=== PATIENT | female | born 1940 | race Caucasian/White ===

== ENCOUNTER 2020-04-27 15:03 | Inpatient (IN) | payer OTHER, MEDICAID, SELFPAY ==
[~2020-04-27] VITALS: Ht 157.5 cm; Wt 72.1 kg
[2020-04-27 15:16] VITALS: BP 163/63
--- NOTE | 2020-04-27 15:34 | NUR ---
80 Y/O FEMALE BIB FAMILY WITH W/C ASSISTANCE. FAMILY STATES PT REFUSED DIALYSIS TODAY AND REFUSING TO TAKE MEDICATIONS AT HOME AND BEING UNCOOPERATIVE. PT FAMILY STATES SHE IS BECOMING MORE ALOC TODAY. THEY CALLED PCP AND WERE TOLD TO BRING PT HERE FOR FURTHER EVALUATION FOR POSSIBLE ABNORMAL LABS. PT SAID SHE FEELS FINE AND DENIES PAIN/N/V. PT HAS PERIODS OF CONFUSED AND IS REORIENTED WHEN NEEDED. PT LAYING IN BED, BED IN LOWEST POSITION, BRAKES LOCKED, X1 SIDERAIL UP. PMH: DIALYSIS (MWF), HTN, HLD, DM NKA
[2020-04-27 16:07] LABS: HEMATOCRIT 36.6 % (36-48); HEMOGLOBIN 11.7 g/dL (12.0-16.0); MEAN CORPUSCULAR HEMOGLOBIN 34 pg (27-31); MEAN CORPUSCULAR HGB CONC 32 g/dL (33-37); MEAN CORPUSCULAR VOLUME 107.3 fL (80-94); PLATELET COUNT (AUTO) 48 K/uL (140-450); RED BLOOD CELL COUNT(AUTO) 3.41 MIL/uL (4.20-5.40); RED CELL DISTRIBUTION WIDTH 23.8 % (11.6-13.7); WHITE BLOOD COUNT (AUTO) 4.3 K/uL (4.8-10.8)
--- NOTE | 2020-04-27 16:18 | NUR ---
DR LAINEZ AT BEDSIDE FOR EVALUATION
--- NOTE | 2020-04-27 16:18 | NUR ---
RAD AT BEDSIDE
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
[2020-04-27 16:45] LABS: ANION GAP 17.9 (8-16); ASPARTATE AMINOTRANSFERASE 22 U/L (15-37); CARBON DIOXIDE 29.2 mmol/L (21-32); CHLORIDE 99 mmol/L (98-107); GLUCOSE 125 mg/dL (74-106); LIPASE 113 U/L (73-393); POTASSIUM 4.1 mmol/L (3.5-5.1); SODIUM SERUM 142 mmol/L (136-145); TOTAL BILIRUBIN 1.4 mg/dL (0.0-1.0); UREA NITROGEN, BLOOD 29 mg/dL (7-18)
[2020-04-27 16:55] LABS: ACETAMINOPHEN < 0.5 ug/ml (10-30); CREATININE 5.4 mg/dL (0.6-1.3); SALICYLATE < 2.8 mg/dL (2.8-20.0)
--- NOTE | 2020-04-27 17:05 | NUR ---
PT TAKEN TO CT VIA RINGRID.
[2020-04-27] MEDS ORDERED: LEVO0.114 PO (17:20)
[2020-04-27] MEDS ORDERED: METO50TE2 PO (17:20)
[2020-04-27] MEDS ORDERED: ASPI-1822 PO (17:20)
[2020-04-27] MEDS ORDERED: ATOR10TA PO (17:20)
[2020-04-27] MEDS ORDERED: SEVE800T6 PO (17:20)
[2020-04-27] MEDS ORDERED: LACT10SO11 PO (17:20)
[2020-04-27] MEDS ORDERED: PANT40EC PO (17:20)
[2020-04-27] MEDS ORDERED: MIRT-91 PO (17:20)
[2020-04-27] MEDS ORDERED: cefTRIAXone 1,000 MG VIAL ONE (17:41)
--- NOTE | 2020-04-27 18:11 | NUR ---
STRAIGHT CATH INSERTED, NO URINE OUTPUT AT THIS TIME. LEFT IN PLACE PER MD ORDER, WILL CONTINUE TO MONITOR.
[2020-04-27 18:40] LABS: LYMPHOCYTES % (MANUAL) 10 % (20-46); MONOCYTES % (MANUAL) 5 % (5-12)
--- NOTE | 2020-04-27 19:02 | NUR ---
TRACKING NUMBER [id number]
--- NOTE | 2020-04-27 19:35 | NUR ---
REPORT GIVEN TO JACQUELINE RIOS, TRANSFER OF CARE AT THIS TIME
--- NOTE | 2020-04-27 19:35 | NUR ---
RECEIVED TRANSFER OF CARE REPORT FROM WILLIAM RIOS FOR CONTINUATION OF CARE.
--- NOTE | 2020-04-27 20:19 | NUR ---
PT DOES NOT HAVE ANY URINE OUTPUT.
--- NOTE | 2020-04-27 20:53 | NUR ---
Patient will be admitted to care of DR TORRES. Admited to TELEMETRY. Will go to room 122A. Belongings list completed. Report to VERONICA RIOS.
--- NOTE | 2020-04-27 21:03 | NUR ---
SPOKE TO PT GRANDSON "AIDEE" AND UPDATE PT STATUS. BEST CONTACT IS PT DAUGHTER "NGA" AT [phone].
--- NOTE | 2020-04-27 21:39 | NUR ---
TRANSFER PT TO ROOM 122A. RECEIVING NURSE VERONICA RIOS AT BEDSIDE.
[2020-04-27 21:40] VITALS: BP 132/50
--- NOTE | 2020-04-27 21:40 | NUR ---
PT ARRIVED FROM ED TO UNIT VIA GURNEY. PT AOX2, WITH MOMENTS OF CONFUSION, ABLE TO MAKE NEEDS KNOWN. RESPIRATIONS ARE EVEN AND UNLABORED TO ROOM AIR. ABDOMEN IS SOFT AND NON-TENDER, ACTIVE BOWEL SOUNDS NOTED. SKIN IS WARM, DRY, AND INTACT. NO EDEMA NOTED. PT INCONTINENT OF BOTH BOWEL AND BLADDER. PT IV ACCESS ON RIGHT AC G20 PATENT AND INTACT, SALINE LOCKED. HEMODIALYSIS ACCESS LEFT AV SHUNT IN PLACE, ARM PRECAUTION OBSERVED. PT WELCOMED AND ORIENTED TO ROOM. VS STABLE, MRSA SWAB COLLECTED, PT HOOKED ON TELE MONITOR. PT DENIES ANY PAIN OR DISCOMFORT, NO REQUESTS MADE. SAFETY MEASURES IN PLACE. WILL CONTINUE TO MONITOR.
[2020-04-27] MEDS ORDERED: ACETAMINOPHEN 325 MG TAB PO PRN (22:50)
[2020-04-27] MEDS ORDERED: HYDROcodone/APAP 7.5/325 MG 1 TAB PO PRN (22:50)
[2020-04-27] MEDS ORDERED: guaiFENesin DM 200/20 MG-10 ML 10 ML UDC PO PRN (22:50)
[2020-04-27] MEDS ORDERED: DOCUSATE SODIUM 100 MG GELCAP PO PRN (22:50)
[2020-04-27] MEDS ORDERED: ONDANSETRON 4 MG/2 ML VIAL IM/IVP PRN (22:50)
[2020-04-27] MEDS ORDERED: POTASSIUM CHLORIDE 10 MEQ TABER PO PRN (22:50)
[2020-04-27] MEDS ORDERED: ZOLPIDEM 5 MG TAB PO PRN (22:50)
[2020-04-27 23:24] LABS: CHOL/HDL RATIO 1.4 (1-4.5); FREE T4 (FREE THYROXINE) 1.28 ng/dL (0.76-1.46); MAGNESIUM 2.8 mg/dL (1.8-2.4); PHOSPHORUS 3.8 mg/dL (2.5-4.9); PROTHROMBIN TIME 12.9 secs (10.8-13.4); THYROID STIMULATING HORMONE 5.66 uIU/mL (0.34-3.74)
[2020-04-28] VITALS: BP 143/70
--- NOTE | 2020-04-28 00:25 | NUR ---
VS STABLE. PT IN BED RESTING. PT DENIES ANY PAIN OR DISCOMFORT AT THIS TIME. NO REQUESTS MADE. SAFETY MEASURES IN PLACE. WILL CONTINUE TO MONITOR.
--- NOTE | 2020-04-28 02:33 | NUR ---
ASLEEP. VISIBLE CHEST RISE AND FALL NOTED. NO S/SX OF PAIN OR DISCOMFORT NOTED. SAFETY MEASURES IN PLACE. WILL CONTINUE TO MONITOR.
[2020-04-28 04:00] VITALS: BP 153/69
--- NOTE | 2020-04-28 04:37 | NUR ---
VS STABLE. PERINEAL CARE DONE WITH MOLDING AND TRIM INSTALLER. PT TOLERATED CARE WELL. PT DENIES ANY PAIN OR DISCOMFORT. SAFETY MEASURES IN PLACE. WILL CONTINUE TO MONITOR.
[2020-04-28] MEDS: LEVOTHYROXINE 0.112 MG TAB PO SCH (05:44)
--- NOTE | 2020-04-28 07:16 | NUR ---
ENDORSED TO DAY SHIFT NURSE FOR CONTINUITY OF CARE
--- NOTE | 2020-04-28 07:17 | NUR ---
RECEIVED ENDORSEMENT FROM ICE GUARD SKATING RINK RN FOR CONTINUITY OF CARE. PT IS AWAKE AND ALERT IN NO DISTRESS. ALL NEEDS MET. POC DISCUSSED AND WILL CONTINUE
[2020-04-28 07:19] LABS: BASOPHILS % (AUTO) 0.7 % (0.0-2.0); EOSINOPHILS % (AUTO) 0.5 % (0.0-4.0); HEMATOCRIT 34.8 % (36-48); HEMOGLOBIN 11.3 g/dL (12.0-16.0); LYMPHOCYTES # (AUTO) 0.5 K/uL (2.5-16.5); LYMPHOCYTES % (AUTO) 13.6 % (20.5-51.1); MEAN CORPUSCULAR HEMOGLOBIN 35 pg (27-31); MEAN CORPUSCULAR HGB CONC 33 g/dL (33-37); MEAN CORPUSCULAR VOLUME 106.7 fL (80-94); MONOCYTES # (AUTO) 0.4 K/uL (0.8-1.0); MONOCYTES % (AUTO) 9.6 % (1.7-9.3); NEUTROPHILS % (AUTO) 75.6 % (42.2-75.2); PLATELET COUNT (AUTO) 52 K/uL (140-450); RED BLOOD CELL COUNT(AUTO) 3.27 MIL/uL (4.20-5.40); RED CELL DISTRIBUTION WIDTH 24.7 % (11.6-13.7)
[2020-04-28 07:36] LABS: ANION GAP 17.1 (8-16); CARBON DIOXIDE 27.3 mmol/L (21-32); CHLORIDE 100 mmol/L (98-107); GLUCOSE 99 mg/dL (74-106); POTASSIUM 4.4 mmol/L (3.5-5.1); SODIUM SERUM 140 mmol/L (136-145); UREA NITROGEN, BLOOD 33 mg/dL (7-18)
[2020-04-28 08:00] VITALS: BP 112/58
[2020-04-28] MEDS: METOPROLOL SUCCINATE 50 MG TABER PO SCH (08:04)
[2020-04-28] MEDS: PANTOPRAZOLE 40 MG TABEC PO SCH (08:04)
[2020-04-28] MEDS: ASPIRIN 81 MG TAB.CHEW PO SCH (08:04)
[2020-04-28] MEDS: SEVELAMER CARBONATE 800 MG TAB PO SCH ×3 (08:04→16:29)
[2020-04-28 08:08] LABS: CREATININE 5.5 mg/dL (0.6-1.3)
--- NOTE | 2020-04-28 08:20 | NUR ---
PT IS AWAKE AND ALERT ORIENTED X 2/3 TO PERSON, SHE KNOWS SHES IN THE HOSPITAL AND KNOWS SITUATION REGARDING ILLNESS. SHE DISPLAYS WORD SALAD AND JUMPS FROM ONE TOPIC TO THE OTHER. PT DENIES ANY DISTRESS. LUNG SOUNDS DIMINISHED, ABD IS SOFT AND NONTENDER WITH ACTIVE BS. SKIN INTACT HAS SOME DISCOLORATION TO RIGHT AC AREA S/P BLOOD DRAW. PT HAS IV ACCESS TO RIGHT AC THAT IS INTACT AND PATENT. TOLERATED SCHEDULED MEDICATION WITH NO ISSUES. PT ORIENTED RECEIVED CALL FROM LAB REGARDING CRITICAL LAB VALUE OF CREATININE OF 5.5. DR. TORRES AND JENIFER NOTIFIED. NO NEW ORDERS AT THIS TIME. NEPHRO CONSULT PENDING.
--- NOTE | 2020-04-28 09:10 | NUR ---
PATIENT HAS BEEN SCREENED AND CATEGORIZED MODERATE NUTRITION RISK. PATIENT WILL BE SEEN WITHIN 3-5 DAYS OF ADMISSION. 05/01/20 05/02/[address]
--- NOTE | 2020-04-28 10:35 | NUR ---
PROVISION OF CAR PROVIDED IN NO DISTRESS.
--- NOTE | 2020-04-28 10:50 | NUR ---
NOSTRIL SWAB DONE FOR PCR AND ROUTED TO LAB
[2020-04-28 12:00] VITALS: BP 156/61
--- NOTE | 2020-04-28 12:55 | NUR ---
PT IS EATING LUNCH AT THIS TIME. TOLERATED SCHEDULED MEDICATION WITH NO ISSUES. PT WILL BE TRANSFERRED TO [facility] 107 A AFTER EATING.
--- NOTE | 2020-04-28 13:43 | NUR ---
DC PLANNIN YRS OLD FEMALE PATIENT WAS ADMITTED FROM HOME WITH A DX OF SEPSIS. PT HAS A HX OF HTN, DM ESRD. HEMODIALYSIS MWF . CXR SHOWED PNA, BILATERAL PLEURAL EFFUSION , CT HEAD NEGATIVE . LACTIC ACID 4.2. RAPID COVID TEST IS NEGATIVE. PCR AND BLOOD CULTURE PENDING. STARTED ROCEPHIN IV ABX AND CONTINUED HOME MEDS. CONSULTED WITH NEPHRO, DR BURGESS AND CARDIO DR CR. DC PLAN TO GO HOME WHEN STABLE. CM TO FOLLOW Addendum: 04/30/20 at 1612 by Isabel Sarkar RN DC PLANNING: JEFFY CAVAZOS SPOKE WITH JANNETTE CASE MOTOR COACH CHAUFFEUR ASKED HIM TO TALK TO CM HE STATED SEND A MESSAGE FOR TO ALL CM, MENTIONED THAT PT IS STABLE FOR TRANSFEREE TO THE CONTRACTED FACILITY. PER JANNETTE CM WILL CALL BACK AND PROVIDE THE AUTH # [id number] CM TO FOLLOW Addendum: 05/01/20 at 1503 by Isabel Sarkar RN DC PLANNING: JEFFY CAVAZOS [phone] SPOKE WITH CHARLES CURTIS UPDATED ALL THE CLINICALS , AND DC PLANNING AND I ASKED HER PT IS STABLE FOR TRANSFER TO THE CONTRACTED FACILITY. PER CHARLES NO NEED TO TRANSFER APPROVED UNTIL DISCHARGE AND TO FAX ALL THE CLINICALS TO [phone]. IF DC TO SNF TO TRY [facility] AND [facility]. CM TO FOLLOW Addendum: 05/01/20 at 1505 by Katarina Ha CM DC RESOURCING ADVISOR: SPOKE TO HANS FROM [facility] TO NOTIFY THEM THAT PATIENT IS COVID POSITIVE. WILL FAX OVER CLINICALS AND THEY WILL ARRANGE CHAIR TIME FOR PATIENT AT [facility]. Addendum: 05/01/20 at 1604 by Katarina Ha CM DC RESOURCING ADVISOR: SPOKE TO PATIENTS DAUGHTER USING [employer]LEMENT[employer]CHO[employer] READING TEACHER REGARDING PLANS OF DISCHARGE. SHE WOULD LIKE FOR HER MOTHER TO RETURN HOME. PATIENT LIVES WITH FAMILY AND HAS A TRANSCRIPTION MANAGER.
--- NOTE | 2020-04-28 14:10 | NUR ---
PT MOVED FROM 122 TO 107 A DUE TO PUI STATUS. PT MOVED WITH ALL BELONGINGS. PROVISION OF CARE PROVIDED. ALL NEEDS MET.
--- NOTE | 2020-04-28 14:16 | NUR ---
SOCIAL WORK NOTE: Patient's Orientation Unable To Assess Information Provided By NGA DUNBAR - DAUGHTER Comments SW WAS UNABLE TO MEET PATIENT AT BEDSIDE. SW COMPLETED ASSESSMENT WITH PATIENT'S DAUGHTER. Portable Pinch Riveter, Realtionship and Phone Number NGA DUNBAR DAUGHTER [phone] [facility] Power of Fruit Distributor Yes - NGA DUNBAR Does Patient Have a POLST No Identifying Problems No Social Work Triggers Is A Social Work Consult Needed No Mandate Report Filed No Explanation Of Identifying Problems PATIENT IS A 80-YEAR-OLD FEMALE ADMITTED FOR SEPSIS. PATIENT HAS PMHX OF ESRD MWF. Admitted From Home Pre-Admission Level Of Functioning Status Independent/Ambulatory Prior Resources/Services Used In Last 12 Months [facility] Prior Resources/Service Comments PATIENT RECEIVES 73 HOURS MONTHLY THROUGH [facility]. Prior DME Wheelchair Dialysis Hemodialysis Name And Phone Number of Dialysis Facility [facility] ESRD Outpatient Days W ESRD Outpatient Time 1330 Living Situation Lives With Family House Patient Had Caregiver Yes Name and Contact Number Of Designated Caregiver NGA DUNBAR Home Support No Caregiver Issues Financial Issues No Known Financial Issue Referral To The Financial Counselor Needed No Factors/Needs No D/C Needs Identified Pt/Rep Participated In Discharge Plan Yes Patient/Family Agress With Discharge Plan Yes Discharge Plan Comments TENTATIVE DISCHARGE PLAN IS FOR PATIENT TO RETURN HOME. DC Plan Status Initiated
--- NOTE | 2020-04-28 15:30 | NUR ---
DR. BURGESS MESSAGED REMINDER FOR CONSULT AND NEED FOR HEMODIALYSIS SINCE LAST HD WAS MONDAY DUE TO MISSED MONDAY. AWAITING RESPONSE.
[2020-04-28 16:00] VITALS: BP 151/73
--- NOTE | 2020-04-28 17:37 | NUR ---
RECEIVED CALL FROM LAB REGARDING UNCOLLECTED UA, CONSULTED WITH DR. TORRES DUE TO STRAIGHT CATH ORDER FROM YESTERDAY AND PT MOST LIKELY ANURIC DR. TORRES ORDERED TO D/C UA ORDER AT THIS TIME. DR. TORRES ALSO NOTIFIED PT HAS NOT BEEN SEEN BY NEPHRO YET.
--- NOTE | 2020-04-28 17:41 | NUR ---
CALLED DR. BURGESS WHO ANSWERED AND STATED HE IS ON HIS WAY AND IS AWARE OF CONSULT.
--- NOTE | 2020-04-28 18:18 | NUR ---
PROVISION OF CARE PROVIDED. RESTING IN BED CONTINUES TO HAVE MOMENTS OF CONFUSION AND WORD SALAD. DR. BURGESS HERE TO EVALUATE. NO ORDERS AT THIS TIME.
--- NOTE | 2020-04-28 18:44 | NUR ---
NOTIFIED DIALYSIS DWYER, FOR SCHEDULED DIALYSIS GABRIEL SEALS WAS INFORMED.
--- NOTE | 2020-04-28 19:00 | NUR ---
PATIENT RECEIVED IN BED ALERT AND ORIENTED X2, WITH MOMENTS OF CONFUSION, ABLE TO MAKE NEEDS KNOWN. RESPIRATIONS ARE EVEN AND NONLABORED TO ROOM AIR. BILATERAL PLEURAL EFFUSION NOTED. ABDOMEN IS SOFT AND NON-TENDER, ACTIVE BOWEL SOUNDS NOTED. SKIN IS WARM, DRY, AND INTACT. NO EDEMA NOTED. PT INCONTINENT OF BOWEL AND BLADDER. PT IV ACCESS ON RIGHT AC G20 PATENT AND INTACT, SALINE LOCKED. HEMODIALYSIS ACCESS LEFT AV SHUNT IN PLACE, ARM PRECAUTION OBSERVED. PT EDUCATED TO RN PLAN OF CARE. DISCUSSED MEDICATION REGIMEN FALL AND SAFETY INTERVENTIONS AND MEDICAL INTERVENTIONS. VS STABLE, CONTINUED CARDIAC TELEMONITORING. PATIENT SKIN REMAINS INTACT. PATIENT RECEPTIVE TO RN PLAN OF CARE. FALL AND SAFETY MEASURES PRECAUTIONARY MEASURES ONGOING. PATIENT SCHEDULED FOR DIALYSIS TODAY.
--- NOTE | 2020-04-28 19:10 | NUR ---
PT ENDORSED TO HEARING THERAPIST RN FOR CONTINUITY OF CARE. PT IS STABLE
[2020-04-28 20:00] VITALS: BP 140/64
[2020-04-28] MEDS: ATORVASTATIN 20 MG TAB PO SCH (22:24)
[2020-04-28] MEDS: MIRTAZAPINE 15 MG TAB PO SCH (22:24)
[2020-04-29] VITALS: BP 134/68
--- NOTE | 2020-04-29 | NUR ---
PATIENT SLEEPING DURING ROUNDING, EASILY AROUSED. RESPIRATIONS EVEN AND NONLABORED. PT SCHEDULED FOR HEMODIALYSIS THIS AM, CONSENTED OVER THE PHONE BY DAUGHTER NGA CABRERA. ENDOCRINOLOGY NURSE INFORMED. PT ANURIC. MAXIMAL CARE RENDERED, PT REQUIRES 2 PERSON ASSISTANCE. REMAINS SINUS RHYTHM. 98% ROOM AIR. MEDICATION ADMINISTERED WITH NO ADVERSE EFFECTS NOTED. RESPIRATIONS EVEN AND NONLABORED. NO ACUTE DISTRESS NOTED.
[2020-04-29 04:00] VITALS: BP 148/74
[2020-04-29 06:15] LABS: BASOPHILS % (AUTO) 0.6 % (0.0-2.0); EOSINOPHILS % (AUTO) 0.2 % (0.0-4.0); HEMOGLOBIN 11.2 g/dL (12.0-16.0); LYMPHOCYTES # (AUTO) 0.4 K/uL (2.5-16.5); MEAN CORPUSCULAR HEMOGLOBIN 34 pg (27-31); MEAN CORPUSCULAR HGB CONC 32 g/dL (33-37); MEAN CORPUSCULAR VOLUME 107.4 fL (80-94); MONOCYTES # (AUTO) 0.4 K/uL (0.8-1.0); MONOCYTES % (AUTO) 8.6 % (1.7-9.3); NEUTROPHILS # (AUTO) 3.5 K/uL (1.8-7.7); NEUTROPHILS % (AUTO) 80.6 % (42.2-75.2); PLATELET COUNT (AUTO) 50 K/uL (140-450); RED BLOOD CELL COUNT(AUTO) 3.26 MIL/uL (4.20-5.40); RED CELL DISTRIBUTION WIDTH 24.7 % (11.6-13.7); WHITE BLOOD COUNT (AUTO) 4.3 K/uL (4.8-10.8)
[2020-04-29] MEDS: LEVOTHYROXINE 0.112 MG TAB PO SCH (07:01)
[2020-04-29 07:15] LABS: ANION GAP 19.1 (8-16); CARBON DIOXIDE 25.6 mmol/L (21-32); CHLORIDE 99 mmol/L (98-107); GLUCOSE 100 mg/dL (74-106); POTASSIUM 4.7 mmol/L (3.5-5.1); SODIUM SERUM 139 mmol/L (136-145); UREA NITROGEN, BLOOD 42 mg/dL (7-18)
--- NOTE | 2020-04-29 07:30 | NUR ---
RECEIVED REPORT FROM APPLIANCE SALES ASSOCIATE. AOX2, TAJIK SPEAKING, ABLE TO MAKE NEEDS KNOWN AT TIMES. NO C/O PAIN, NO SOB, NO APPARENT DISTRESS. ON ROOM AIR. NONAMBULATORY. BOWEL AND BLADDER INCONTINENT. ON TELE MONITORING, SR ON MONITOR. WITH IV ON RAC 20G ON SL. SAFETY PRECAUTIONS IN PLACE . CALL LIGHT WITHIN REACH. WILL CONTINUE TO MONITOR
[2020-04-29 08:00] VITALS: BP 168/69
[2020-04-29 08:08] LABS: T4 (THYROXINE) 7.3 ug/dL (4.5-12.0)
[2020-04-29 08:23] LABS: CREATININE 6.3 mg/dL (0.6-1.3)
--- NOTE | 2020-04-29 08:48 | NUR ---
DUE MORNING MEEDS GIVEN TOLERATED WELL
[2020-04-29] MEDS: VIT-B COMP/VIT-C/FOLIC ACID 1 TAB PO SCH (09:54)
[2020-04-29] MEDS: ASPIRIN 81 MG TAB.CHEW PO SCH (09:54)
[2020-04-29] MEDS: METOPROLOL SUCCINATE 50 MG TABER PO SCH (09:54)
[2020-04-29] MEDS: PANTOPRAZOLE 40 MG TABEC PO SCH (09:54)
[2020-04-29] MEDS: SEVELAMER CARBONATE 800 MG TAB PO SCH ×3 (09:54→17:00)
--- NOTE | 2020-04-29 10:55 | NUR ---
UPDATE GIVEN TO DAUGHTER
[2020-04-29 12:00] VITALS: BP 152/67
--- NOTE | 2020-04-29 13:45 | NUR ---
HEMODIALYSIS DONE. NO ADVERSE REACTIONS NOTED. VSS
[2020-04-29 16:00] VITALS: BP 146/61
--- NOTE | 2020-04-29 17:10 | NUR ---
WITH EPISODE OF CONFUSION AND AGITATION. AMBULATED TO DOOR UNASSISTED. UNSTEADY GAIT. ASSISTED PT BACK TO BED WITH RESISTANCE FROM PT. PAGED DR TORRES, ORDERED ATIVAN 1MG Q12H PRN.
[2020-04-29] MEDS ORDERED: LORazepam 2 MG/ML VIAL ONE (17:12)
[2020-04-29] MEDS: LORazepam 2 MG/ML VIAL IM/IVP PRN (17:15)
--- NOTE | 2020-04-29 17:41 | NUR ---
ATIVAN INEFFECTIVE AT THIS TIME. PT STILL ATTEMPTING TO AMBULATE UNASSISTED. PAGED DR TORRES, ORDERED FOR PT TO HAVE A SITTER
--- NOTE | 2020-04-29 18:34 | NUR ---
PT APPEARS CALM IN BED. AWAKE BUT CONFUSED, NO ATTEMPTS TO AMBULATE
--- NOTE | 2020-04-29 19:00 | NUR ---
PATIENT RECEIVED IN BED ALERT AND ORIENTED X2, WITH MOMENTS OF CONFUSION, ABLE TO MAKE NEEDS KNOWN. RESPIRATIONS ARE EVEN AND NONLABORED TO ROOM AIR. BILATERAL PLEURAL EFFUSION NOTED. ABDOMEN IS SOFT AND NON-TENDER, ACTIVE BOWEL SOUNDS NOTED. SKIN IS WARM, DRY, AND INTACT. NO EDEMA NOTED. PT INCONTINENT OF BOWEL AND BLADDER. PT IV ACCESS ON RIGHT AC G20 PATENT AND INTACT, SALINE LOCKED. HEMODIALYSIS ACCESS LEFT AV SHUNT IN PLACE, ARM PRECAUTION OBSERVED. PT EDUCATED TO RN PLAN OF CARE. DISCUSSED MEDICATION REGIMEN FALL AND SAFETY INTERVENTIONS AND MEDICAL INTERVENTIONS. VS STABLE, CONTINUED CARDIAC TELEMONITORING. PATIENT SKIN REMAINS INTACT. HEMODIALYSIS THIS AM SHIFT. REPORTED 2.5L REMOVED. MAXIMAL CARE RENDERED. PATIENT REQUIRES 2 PERSON ASSIST. NO ACUTE DISTRESS NOTED.
[2020-04-29 20:00] VITALS: BP 138/70
[2020-04-29] MEDS: MIRTAZAPINE 15 MG TAB PO SCH (20:32)
[2020-04-29] MEDS: ATORVASTATIN 20 MG TAB PO SCH (20:32)
[2020-04-30] VITALS: BP 126/72
[2020-04-30 04:00] VITALS: BP 130/70
[2020-04-30 06:03] LABS: BASOPHILS % (AUTO) 0.9 % (0.0-2.0); EOSINOPHILS # (AUTO) 0.1 K/uL (0-0.4); EOSINOPHILS % (AUTO) 1.3 % (0.0-4.0); HEMATOCRIT 35.1 % (36-48); HEMOGLOBIN 11.4 g/dL (12.0-16.0); LYMPHOCYTES # (AUTO) 0.6 K/uL (2.5-16.5); LYMPHOCYTES % (AUTO) 12.9 % (20.5-51.1); MEAN CORPUSCULAR HEMOGLOBIN 35 pg (27-31); MEAN CORPUSCULAR HGB CONC 32 g/dL (33-37); MEAN CORPUSCULAR VOLUME 106.7 fL (80-94); MONOCYTES # (AUTO) 0.5 K/uL (0.8-1.0); MONOCYTES % (AUTO) 11.4 % (1.7-9.3); NEUTROPHILS # (AUTO) 3.2 K/uL (1.8-7.7); NEUTROPHILS % (AUTO) 73.5 % (42.2-75.2); PLATELET COUNT (AUTO) 57 K/uL (140-450); RED BLOOD CELL COUNT(AUTO) 3.29 MIL/uL (4.20-5.40); RED CELL DISTRIBUTION WIDTH 24.4 % (11.6-13.7); WHITE BLOOD COUNT (AUTO) 4.4 K/uL (4.8-10.8)
[2020-04-30] MEDS: LEVOTHYROXINE 0.112 MG TAB PO SCH (06:09)
[2020-04-30 06:55] LABS: ANION GAP 13.6 (8-16); CARBON DIOXIDE 27.4 mmol/L (21-32); CHLORIDE 100 mmol/L (98-107); GLUCOSE 98 mg/dL (74-106); SODIUM SERUM 137 mmol/L (136-145); UREA NITROGEN, BLOOD 29 mg/dL (7-18)
--- NOTE | 2020-04-30 07:35 | NUR ---
RECEIVED PT FROM VACCINE SPECIALIST NURSE, ISRAEL, PT IS ASLEEP AND REACTS WHEN CALLED BY NAME AND TOUCHED, SIDE RAILS ARE UP AND CALL LIGHT WITHIN REACH, SAFETY AND FALL PRECAUTIONS ARE IN PLACE, 1:1 SITTER ON BEDSIDE, PT IS ON RA, IV LINE NOTED ON THE RAC G. 20 ON SALINE LOCK, LEFT AV SHUNT IN PLACE FOR DIALYSIS ACCESS, DIALYSIS M-W-F, NO SIGN OF DISTRESS NOTED AND WILL CONTINUE TO MONITOR PT.
[2020-04-30 08:00] VITALS: BP 124/56
--- NOTE | 2020-04-30 09:00 | NUR ---
PT'S IV LINE WAS REINFORCED AND CHECKED, WILL MONITOR PT.
[2020-04-30] MEDS: PANTOPRAZOLE 40 MG TABEC PO SCH (10:24)
[2020-04-30] MEDS: ASPIRIN 81 MG TAB.CHEW PO SCH (10:24)
[2020-04-30] MEDS: VIT-B COMP/VIT-C/FOLIC ACID 1 TAB PO SCH (10:24)
[2020-04-30] MEDS: SEVELAMER CARBONATE 800 MG TAB PO SCH ×3 (10:24→17:31)
[2020-04-30] MEDS: METOPROLOL SUCCINATE 50 MG TABER PO SCH (10:25)
--- NOTE | 2020-04-30 10:25 | NUR ---
PT WAS GIVEN THE SCHEDULED AM MEDICATIONS, PARAMETERS CHECKED, PULSE IS 75, BP IS 130/60, WILL CONTINUE TO MONITOR PT.
[2020-04-30 12:00] VITALS: BP 157/70
--- NOTE | 2020-04-30 13:32 | NUR ---
TALKED TO DAUGHTER MADE AWARE PT REMOVED HER 2 RINGS, DAUGHTER WILL PICK IT UP, WILL INFORM THE NURSE .
--- NOTE | 2020-04-30 13:51 | NUR ---
PT WAS GIVEN RENVELA NOW, CRUSHED AND WILL CONTINUE TO BE MONITORED.
[2020-04-30 16:00] VITALS: BP 150/85
--- NOTE | 2020-04-30 17:15 | NUR ---
PT'S IV LINE WAS INFILTRATED NOW.
--- NOTE | 2020-04-30 19:15 | NUR ---
REPORT Obtained report from daysdcft nurse Rena and this nruse assume care until 729. Received patient awake and confused. 1:1 sitter at bedside. VSS. Afeb. SL intact to R hand middle finger 24 g. No c/o pain or discomfort. Daughter Scotty Wetzel , asked to speak with the MD. This nurse stated to call back like about 10 am. Meds crushed and given in pudding.
[2020-04-30 20:00] VITALS: BP 142/65
[2020-04-30] MEDS: MIRTAZAPINE 15 MG TAB PO SCH (21:41)
[2020-04-30] MEDS: ATORVASTATIN 20 MG TAB PO SCH (21:41)
[2020-05-01 04:00] VITALS: BP 151/66
[2020-05-01 06:03] LABS: BASOPHILS % (AUTO) 0.9 % (0.0-2.0); EOSINOPHILS % (AUTO) 1.1 % (0.0-4.0); HEMATOCRIT 37.2 % (36-48); LYMPHOCYTES # (AUTO) 0.4 K/uL (2.5-16.5); LYMPHOCYTES % (AUTO) 8.5 % (20.5-51.1); MEAN CORPUSCULAR HEMOGLOBIN 34 pg (27-31); MEAN CORPUSCULAR HGB CONC 32 g/dL (33-37); MONOCYTES # (AUTO) 0.4 K/uL (0.8-1.0); MONOCYTES % (AUTO) 8.1 % (1.7-9.3); NEUTROPHILS # (AUTO) 3.8 K/uL (1.8-7.7); NEUTROPHILS % (AUTO) 81.4 % (42.2-75.2); PLATELET COUNT (AUTO) 63 K/uL (140-450); RED BLOOD CELL COUNT(AUTO) 3.48 MIL/uL (4.20-5.40); RED CELL DISTRIBUTION WIDTH 24.6 % (11.6-13.7); WHITE BLOOD COUNT (AUTO) 4.7 K/uL (4.8-10.8)
[2020-05-01] MEDS: LEVOTHYROXINE 0.112 MG TAB PO SCH (06:47)
[2020-05-01 06:51] LABS: ANION GAP 13.4 (8-16); CARBON DIOXIDE 28.8 mmol/L (21-32); CHLORIDE 99 mmol/L (98-107); GLUCOSE 84 mg/dL (74-106); POTASSIUM 4.2 mmol/L (3.5-5.1); SODIUM SERUM 137 mmol/L (136-145); UREA NITROGEN, BLOOD 37 mg/dL (7-18)
--- NOTE | 2020-05-01 07:30 | NUR ---
REPORT AND ENDORSEMENT Report given to [facility] nurse Churchill to assume care of patient. Tele of daughter Scotty Wetzel . She would like the MD to call her concerning her mother.
[2020-05-01 08:00] VITALS: BP 142/65
[2020-05-01 08:15] LABS: CREATININE 5.9 mg/dL (0.6-1.3)
[2020-05-01] MEDS ORDERED: ALBUTEROL HFA MDI 90 MCG/ACTUATION 8 GM INH PRN (08:20)
[2020-05-01] MEDS ORDERED: AZITHROMYCIN 250 MG TAB PO SCH (09:00)
[2020-05-01] MEDS: ASPIRIN 81 MG TAB.CHEW PO SCH (09:00)
[2020-05-01] MEDS: hydrALAZINE 10 MG TAB PO SCH ×3 (09:00→17:00)
[2020-05-01] MEDS: METOPROLOL SUCCINATE 50 MG TABER PO SCH (09:00)
[2020-05-01] MEDS: LORazepam 2 MG/ML VIAL IM/IVP PRN (09:41)
[2020-05-01] MEDS: ASCORBIC ACID 500 MG TAB PO SCH (09:57)
[2020-05-01] MEDS: SEVELAMER CARBONATE 800 MG TAB PO SCH ×3 (09:57→17:00)
[2020-05-01] MEDS: PANTOPRAZOLE 40 MG TABEC PO SCH (09:57)
[2020-05-01] MEDS: ZINC SULF 220 MG CAP PO SCH (09:58)
[2020-05-01] MEDS: VIT-B COMP/VIT-C/FOLIC ACID 1 TAB PO SCH (09:58)
[2020-05-01 12:00] VITALS: BP 110/66
[2020-05-01] MEDS: MIRTAZAPINE 15 MG TAB PO SCH (21:00)
[2020-05-01] MEDS: ATORVASTATIN 20 MG TAB PO SCH (21:00)
[2020-05-01] MEDS: QUEtiapine FUMARATE 25 MG TAB PO SCH (21:00)
[2020-05-01 21:19] VITALS: BP 100/53
[2020-05-01 22:00] VITALS: BP 133/60
[2020-05-02 04:00] VITALS: BP 152/62
[2020-05-02] MEDS: LEVOTHYROXINE 0.112 MG TAB PO SCH ×2 (06:20→06:22)
[2020-05-02 07:14] LABS: BASOPHILS % (AUTO) 0.8 % (0.0-2.0); EOSINOPHILS # (AUTO) 0.1 K/uL (0-0.4); EOSINOPHILS % (AUTO) 1.5 % (0.0-4.0); HEMATOCRIT 34.2 % (36-48); LYMPHOCYTES # (AUTO) 0.2 K/uL (2.5-16.5); LYMPHOCYTES % (AUTO) 5.2 % (20.5-51.1); MEAN CORPUSCULAR HEMOGLOBIN 35 pg (27-31); MEAN CORPUSCULAR HGB CONC 32 g/dL (33-37); MEAN CORPUSCULAR VOLUME 107.2 fL (80-94); MONOCYTES # (AUTO) 0.3 K/uL (0.8-1.0); MONOCYTES % (AUTO) 8.7 % (1.7-9.3); NEUTROPHILS # (AUTO) 3.3 K/uL (1.8-7.7); NEUTROPHILS % (AUTO) 83.8 % (42.2-75.2); PLATELET COUNT (AUTO) 59 K/uL (140-450); RED BLOOD CELL COUNT(AUTO) 3.19 MIL/uL (4.20-5.40); RED CELL DISTRIBUTION WIDTH 24.4 % (11.6-13.7)
[2020-05-02 07:24] LABS: ANION GAP 11.2 (8-16); CARBON DIOXIDE 26.7 mmol/L (21-32); CHLORIDE 103 mmol/L (98-107); GLUCOSE 104 mg/dL (74-106); POTASSIUM 3.9 mmol/L (3.5-5.1); SODIUM SERUM 137 mmol/L (136-145); UREA NITROGEN, BLOOD 26 mg/dL (7-18)
--- NOTE | 2020-05-02 08:00 | NUR ---
Patient awale, alert and oriented to self only with periods of confusion. Patient pulled peripheral IV overnight. Safety co measures in place with call light, bed lowered and has no further needs.
[2020-05-02 08:13] LABS: CREATININE 4.7 mg/dL (0.6-1.3)
[2020-05-02 08:24] VITALS: BP 155/66
[2020-05-02] MEDS: ZINC SULF 220 MG CAP PO SCH (10:02)
[2020-05-02] MEDS: QUEtiapine FUMARATE 25 MG TAB PO SCH (10:02)
[2020-05-02] MEDS: ASPIRIN 81 MG TAB.CHEW PO SCH (10:03)
[2020-05-02] MEDS: ASCORBIC ACID 500 MG TAB PO SCH (10:03)
[2020-05-02] MEDS: hydrALAZINE 10 MG TAB PO SCH ×2 (10:04→13:00)
[2020-05-02] MEDS: SEVELAMER CARBONATE 800 MG TAB PO SCH ×2 (10:04→13:00)
[2020-05-02] MEDS: METOPROLOL SUCCINATE 50 MG TABER PO SCH (10:04)
[2020-05-02] MEDS: PANTOPRAZOLE 40 MG TABEC PO SCH (10:04)
[2020-05-02] MEDS: VIT-B COMP/VIT-C/FOLIC ACID 1 TAB PO SCH (10:07)
[2020-05-02] MEDS ORDERED: ALBU0.0912 INH (11:47)
[2020-05-02] MEDS ORDERED: QUET25TA46 PO (11:47)
[2020-05-02] MEDS ORDERED: VITC500 PO (11:47)
[2020-05-02] MEDS ORDERED: ZINC220C28 PO (11:47)
[2020-05-02] MEDS ORDERED: PANT40EC56 PO (11:47)
[2020-05-02] MEDS ORDERED: APR10 PO (11:47)
[2020-05-02] MEDS ORDERED: CHOL400T12 PO (11:50)
--- NOTE | 2020-05-02 13:07 | NUR ---
SPOKE WITH PEGGY FROM [facility] TEL # [phone] REGARDING PT'S DIALYSIS CHAIR TIME. PER PEGGY, HE DID NOT RECEIVE ANY CLINICALS YET. CLINICALS FAXED, CONFIRMATION RECEIVED. PT'S DIALYSIS CHAIR TIME AT [facility] TEL # [phone]: EVERY [id number] AT 8:[address] BURGESS, STATED PT'S HD CAN START ON MONDAY, PT HAD HD YESTERDAY. DR. MERCADO AND RN ASSIGNED MADE AWARE.
[2020-05-02 13:15] VITALS: BP 115/51
--- NOTE | 2020-05-02 13:26 | NUR ---
05/02/20 RD INITIAL ASSESSMENT COMPLETED PLEASE REFER TO NUTRITION ASSESSMENT UNDER CARE ACTIVITY FOR ESTIMATED NUTRITIONAL NEEDS. RD RECOMMENDATIONS: 1. CONTINUE CARDIAC, RENAL STANDARD, MECHANICAL SOFT DIET TOLERATED. 2. ENCOURAGE ORAL INTAKE FOR ADEQUATE NUTRITION INTAKE. 3. IF PT IS NOT ON STRICT I/O INTAKE, CONSIDER ADDING NEPRO DAILY TO OPTIMIZE NUTRITION INTAKE. 4. RD WILL F/U 2-3 DAYS; HIGH RISK. ALYSSA DAVIS RD
--- NOTE | 2020-05-02 14:13 | NUR ---
Patient discharged home, education given to daughter about disease process and medications. Taken off the unit in wheeled chair and had no further needs.
== END 2020-05-02 13:45 | disposition home or self-care (01) | DRG 871 ==
LOC: MED 15:03 → MTU 19:26
PROVIDERS: ADMIT Family Medicine; ATTEND Family Medicine
PROC: 5A1D70Z Performance of Urinary Filtration, Intermittent, Less than 6 Hours Per Day (ICD-10-PCS; principal; 2020-04-29)
PROC: 5A1D70Z Performance of Urinary Filtration, Intermittent, Less than 6 Hours Per Day (ICD-10-PCS; 2020-05-01)
DX: A41.89 Other specified sepsis (principal); G93.41 Metabolic encephalopathy; N18.6 End stage renal disease; J12.82 Pneumonia due to coronavirus disease 2019; U07.1 COVID-19; I13.2 Hypertensive heart and chronic kidney disease with heart failure and with stage 5 chronic kidney disease, or end stage renal disease; J91.8 Pleural effusion in other conditions classified elsewhere; N39.0 Urinary tract infection, site not specified; Z99.2 Dependence on renal dialysis; D69.6 Thrombocytopenia, unspecified; E03.9 Hypothyroidism, unspecified; E11.22 Type 2 diabetes mellitus with diabetic chronic kidney disease; F03.90 Unspecified dementia, unspecified severity, without behavioral disturbance, psychotic disturbance, mood disturbance, and anxiety; F29 Unspecified psychosis not due to a substance or known physiological condition; R65.20 Severe sepsis without septic shock; I48.0 Paroxysmal atrial fibrillation; I50.9 Heart failure, unspecified; Z86.73 Personal history of transient ischemic attack (TIA), and cerebral infarction without residual deficits; Z90.49 Acquired absence of other specified parts of digestive tract; Z95.0 Presence of cardiac pacemaker; Z79.82 Long term (current) use of aspirin; Z79.899 Other long term (current) drug therapy; Z98.51 Tubal ligation status
CPT/HCPCS: 36415; 70450; 71045; 80048; 80053; 82140; 82150; 83036; 83605; 83615; 83690; 83735; 83880; 84100; 84436; 84439; 84443; 84479; 84484; 85025; 85379; 85610; 85651; 85730; 86140; 87040; 87081; 96365; 99291; C1758; G0480; J0696; J2060; J7030; J7060; U0003